=== PATIENT | female | born 1965 ===

== ENCOUNTER → 2016-11-24 | Outpatient (CLI) | payer BC | LOC: MC.RAD 13:40 | DX: Z12.31 Encounter for screening mammogram for malignant neoplasm of breast (principal) ==

== ENCOUNTER 2018-12-14 17:05 | Inpatient (IN) | payer BC ==
[~2018-12-14] VITALS: Ht 157.5 cm; Wt 77.3 kg
[2018-12-14 18:24] LABS: BASO # 0.1 (0.0-0.2); BASO % 0.6 % (0.0-2.0); EOS # 0.3 (0.0-0.7); GRAN # 4.9 (1.4-6.5); GRAN % 58.7 % (42.2-75.2); HEMATOCRIT 38.5 % (37.0-47.0); HEMOGLOBIN 12.7 g/dl (12.5-16.0); LYMPH # 2.4 (1.2-3.4); LYMPH % 29.3 % (20.0-51.0); MEAN CELL VOLUME 87 fl (80.0-100.0); MEAN CORPUSCULAR HEMOGLOBIN 29 pg (27.0-31.0); MEAN CORPUSCULAR HGB CONC 33 g/dl (33.0-37.0); MEAN PLATELET VOLUME 10.2 fl (7.4-10.4); MONO # 0.6 (0.1-0.6); MONO % 7.2 % (1.7-9.3); PLATELET COUNT 237 K/mm3 (130-400); RED BLOOD COUNT 4.41 M/mm3 (4.10-5.30); REDCELL DISTRIBUTION WIDTH-CV 12.5 % (11.5-14.5)
[2018-12-14 18:36] LABS: BILIRUBIN,TOTAL 0.8 mg/dL (0.0-1.0); C-REACTIVE PROTEIN 1.6 mg/dL (0.0-0.9); CALCIUM 9.2 mg/dL (8.4-10.2); CREATININE, serum 0.82 (0.52-1.25); POTASSIUM 4.3 mmol/L (3.4-5.0); TOTAL PROTEIN 7.5 gm/dL (6.4-8.2)
[2018-12-14 20:31] LABS: COLLECTION METHOD CLEAN CATCH
[2018-12-14 21:23] LABS: PH 6 (5-8); URINE APPEARANCE Clear; URINE BILIRUBIN Negative (NEGATIVE); URINE BLOOD 2+ (NEGATIVE); URINE COLOR Straw; URINE GLUCOSE Negative (NEGATIVE); URINE KETONE Negative (NEGATIVE); URINE LEUKOCYTE ESTERASE Negative (NEGATIVE); URINE NITRATE Negative (NEGATIVE); URINE PROTEIN(semi-quant) Negative (NEGATIVE); URINE UROBILINOGEN Negative (NEGATIVE)
[2018-12-14 21:24] LABS: SQUAMOUS EPITHELIAL 0-2 /hpf
[2018-12-14] MEDS ORDERED: PRAVACHOL 40MG40 MG PO (23:38)
[2018-12-14] MEDS ORDERED: ROXICODONE 55 MG/TAB PO (23:39)
[2018-12-14] MEDS ORDERED: ULTRAM 50MG TAB50 MG PO (23:40)
[2018-12-14] MEDS ORDERED: MOTRIN 600600 MG/TAB PO (23:40)
[2018-12-14] MEDS ORDERED: ASPIRIN 81M81 MG/TA2 PO (23:50)
[2018-12-15 00:05] VITALS: BP 113/72; PULSE 53; TEMP 98.9
--- NOTE | 2018-12-15 00:05 | NUR ---
Pt arrived on unit via stretcher from ED escorted by staff and . Oriented to room, bed and call light within reach. Plan of care and orders reviewed with pt and . Both verbalized an understanding, agreed with the plan and state no questions or concerns at this time.
[2018-12-15 05:30] VITALS: BP 95/58; PULSE 58; TEMP 97.9
[2018-12-15 07:59] VITALS: BP 124/68; PULSE 76; TEMP 98.1
[2018-12-15 12:12] LABS: BASO % 0.1 % (0.0-2.0); GRAN # 6.1 (1.4-6.5); GRAN % 77.8 % (42.2-75.2); HEMATOCRIT 38.5 % (37.0-47.0); HEMOGLOBIN 12.7 g/dl (12.5-16.0); LYMPH # 1.4 (1.2-3.4); LYMPH % 17.2 % (20.0-51.0); MEAN CELL VOLUME 88 fl (80.0-100.0); MEAN CORPUSCULAR HEMOGLOBIN 29 pg (27.0-31.0); MEAN CORPUSCULAR HGB CONC 33 g/dl (33.0-37.0); MEAN PLATELET VOLUME 10.5 fl (7.4-10.4); MONO # 0.4 (0.1-0.6); MONO % 4.4 % (1.7-9.3); PLATELET COUNT 270 K/mm3 (130-400); REDCELL DISTRIBUTION WIDTH-CV 12.8 % (11.5-14.5)
[2018-12-15 15:33] VITALS: BP 98/62; PULSE 68; TEMP 97.8
[2018-12-15 20:08] VITALS: BP 115/68; PULSE 55; TEMP 98
[2018-12-16 00:40] VITALS: BP 100/69; PULSE 63; TEMP 97.6
[2018-12-16 07:10] LABS: BASO % 0.5 % (0.0-2.0); EOS # 0.2 (0.0-0.7); EOS % 2.3 % (0-4.0); GRAN # 4.1 (1.4-6.5); GRAN % 49.2 % (42.2-75.2); HEMOGLOBIN 11.7 g/dl (12.5-16.0); LYMPH # 3.3 (1.2-3.4); LYMPH % 40.3 % (20.0-51.0); MEAN CELL VOLUME 89 fl (80.0-100.0); MEAN CORPUSCULAR HEMOGLOBIN 29 pg (27.0-31.0); MEAN CORPUSCULAR HGB CONC 33 g/dl (33.0-37.0); MEAN PLATELET VOLUME 10.4 fl (7.4-10.4); MONO # 0.6 (0.1-0.6); MONO % 7.3 % (1.7-9.3); PLATELET COUNT 227 K/mm3 (130-400); REDCELL DISTRIBUTION WIDTH-CV 12.9 % (11.5-14.5)
[2018-12-16 07:11] LABS: HEMATOCRIT 35.5 % (37.0-47.0)
[2018-12-16 08:45] VITALS: BP 110/75; PULSE 70; TEMP 97.7
--- NOTE | 2018-12-16 08:45 | NUR ---
Patient moaning at bedside. States being constipated. Says having pain from being constipated. Miralax 17gm., and ibuprofen 600 mg given as ordered.
--- NOTE | 2018-12-16 11:00 | NUR ---
Continues to feel constipated. Sits bath and shower done. States feeling a little better.
--- NOTE | 2018-12-16 11:08 | NUR ---
Initial visit; Patient in pain. Skiff Operator spoke with her , letting him know that spiritual care is available. He thanked Skiff Operator for stopping.
--- NOTE | 2018-12-16 11:30 | NUR ---
Roles here, visits with patient. Ducolax supp ordered. 1155 Ducolax suppository given per rectum. Encouraged to lie on side for twenty minutes.
[2018-12-16] MEDS ORDERED: COLACE 100100 MG/CAP PO (11:47)
--- NOTE | 2018-12-16 13:20 | NUR ---
States feeling better, says had a little bowel movement. States ready to go home. To home via wheel chair with spouse and nurse Ana Maria.
== END 2018-12-16 13:20 | disposition home or self-care (01) | DRG 921 ==
LOC: COL.ER 17:05 → OB 23:22
PROVIDERS: Emergency Medicine; Obstetrics & Gynecology; ADMIT Student in an Organized Health Care Education/Training Program
DX: L76.32 Postprocedural hematoma of skin and subcutaneous tissue following other procedure (principal); Y83.8 Other surgical procedures as the cause of abnormal reaction of the patient, or of later complication, without mention of misadventure at the time of the procedure; Y82.8 Other medical devices associated with adverse incidents; Z90.710 Acquired absence of both cervix and uterus; E78.5 Hyperlipidemia, unspecified; K59.00 Constipation, unspecified
CPT/HCPCS: J1170; J1885; J2405; J2930; J3010; J7030; Q9967

== ENCOUNTER 2021-08-25 05:55 | Emergency (ER) | payer OTHER ==
[~2021-08-25] VITALS: Ht 165 cm; Wt 70.5 kg
[~2021-08-25 05:55] MED LIST: ASPIRIN 81M81 MG/TA2 PO; COLACE 100100 MG/CAP PO; MOTRIN 600600 MG/TAB PO; PRAVACHOL 40MG40 MG PO; ROXICODONE 55 MG/TAB PO; ULTRAM 50MG TAB50 MG PO
[2021-08-25 06:23] VITALS: TEMP 97.8
[2021-08-25 07:00] LABS: BASO % 0.7 % (0.0-2.0); EOS # 0.3 K/mm3 (0.0-0.7); EOS % 6.3 % (0.0-4.0); GRAN # 2.5 K/mm3 (1.4-6.5); GRAN % 46.3 % (42.2-75.2); HEMATOCRIT 40.4 % (37.0-47.0); HEMOGLOBIN 13.5 g/dl (12.5-16.0); LYMPH # 2.3 K/mm3 (1.2-3.4); LYMPH % 41.5 % (20.0-51.0); MEAN CELL VOLUME 86 fl (80.0-100.0); MEAN CORPUSCULAR HEMOGLOBIN 29 pg (27-31); MEAN CORPUSCULAR HGB CONC 33 g/dl (33.0-37.0); MEAN PLATELET VOLUME 9.9 fl (7.4-10.4); MONO # 0.3 K/mm3 (0.1-0.6); PLATELET COUNT 253 K/mm3 (130-400); RED BLOOD COUNT 4.68 M/mm3 (4.10-5.30); REDCELL DISTRIBUTION WIDTH-CV 13.2 % (11.5-14.5)
[2021-08-25 07:22] LABS: ALBUMIN 3.8 gm/dL (3.5-5.0); BILIRUBIN,TOTAL 0.4 mg/dL (0.2-1.2); CALCIUM 8.9 mg/dL (8.4-10.2); CREATININE, serum 0.76 mg/dL (0.57-1.11); POTASSIUM 3.8 mmol/L (3.5-4.5); TOTAL PROTEIN 7.2 gm/dL (6.2-8.1)
[2021-08-25 08:12] LABS: COLLECTION METHOD CLEAN CATCH
[2021-08-25 08:21] LABS: PH 5 (5-8); SQUAMOUS EPITHELIAL 0-2 /hpf (0-10); URINE APPEARANCE Clear (CLEAR/HAZY); URINE BACTERIA None Seen /hpf (NONE SEEN); URINE BILIRUBIN Negative (NEGATIVE); URINE BLOOD 2+ (NEGATIVE); URINE COLOR Straw (YELLOW); URINE GLUCOSE Negative (NEGATIVE); URINE KETONE Negative (NEGATIVE); URINE LEUKOCYTE ESTERASE Negative (NEGATIVE); URINE NITRATE Negative (NEGATIVE); URINE PROTEIN(semi-quant) Negative (NEGATIVE); URINE UROBILINOGEN Negative (NEGATIVE)
[2021-08-25] MEDS ORDERED: ZOFRAN ODT4 MG PO (13:31)
[2021-08-25 13:42] VITALS: BP 111/72; PULSE 41
== END 2021-08-25 13:55 | disposition home or self-care (01) ==
LOC: COL.ER 05:55
PROVIDERS: Emergency Medicine; Student in an Organized Health Care Education/Training Program
DX: R10.84 Generalized abdominal pain (principal); R11.2 Nausea with vomiting, unspecified; R31.9 Hematuria, unspecified
CPT/HCPCS: J2405; J7120; Q9967